=== PATIENT | male | born 1955 | race American Indian/Alaskan Native ===

== ENCOUNTER 2016-11-07 12:58 | Emergency (ER) | payer OTHER ==
[2016-11-07 13:20] VITALS: BP 162/98
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
== END 2016-11-07 16:39 | disposition home or self-care (01) ==
LOC: ED 12:58
DX: R07.81 Pleurodynia (principal); V89.2XXA Person injured in unspecified motor-vehicle accident, traffic, initial encounter; Y93.9 Activity, unspecified; Y99.9 Unspecified external cause status; Y92.410 Unspecified street and highway as the place of occurrence of the external cause
CPT/HCPCS: 99282